=== PATIENT | female | born 1950 | race Two or more races ===

== ENCOUNTER 2019-05-08 08:00 | Observation (INO) | payer OTHER ==
[2019-05-07 15:06] VITALS: BMI 39.0
[~2019-05-08] VITALS: Ht 162.6 cm; Wt 102.5 kg
[2019-05-08] VITALS (26 sets, daily range): BP systolic 123–187; BP diastolic 62–97; PULSE 72–111; RESP 10–24; Ht 162.6 cm; Wt 102.5 kg
[~2019-05-08 08:00] MED LIST: CEFAZOLIN 2 GM/50 ML (PMX) 50 ML IVPB ONE; PHENYLephrine (100 MCG/ML) 10ML SYG ONE
[2019-05-08] MEDS ORDERED: ASPI-817 ORAL (08:42)
[2019-05-08] MEDS ORDERED: LOSA50TA14 ORAL (08:42)
[2019-05-08] MEDS ORDERED: LACTATED RINGER'S 1,000 ML IV SCH (09:00)
[2019-05-08] MEDS ORDERED: ONDANSETRON 4 MG INJ ONE ×2 (09:47→11:48)
--- NOTE | 2019-05-08 10:44 | PREAC ---
Date/Time of Note Date/Time of Note DATE: 05/08/19 TIME: 10:43 Anesthesia Eval and Record Evaluation Time Pre-Procedure Interview DATE: 05/08/19 TIME: 10:43 Age 69 Sex female NPO: 8 hrs Preoperative diagnosis breast cancer Planned procedure right radical mastectomy Past Medical History Past Medical History: Includes Cardio: HTN, Dyslipidemia GI: Obesity Surgery & Anesthesia Issues No known issue Meds Anticoagulation: No Beta Otilia within 24 hr: No Reason Beta Otilia not given: Pt. not on B-Otilia Reported Medications Losartan Potassium* (Losartan Potassium*) 50 Mg Tablet, 1 TAB ORAL DAILY 05/08/19 Aspirin* (Aspirin* EC) 81 Mg Tablet.dr, 1 TAB ORAL DAILY 05/08/19 Current Medications Lactated Ringer's 1,000 ml @ 20 mls/hr Q24H IV ; Start 05/08/19 at 09:00 Meds reviewed: Yes Allergies Coded Allergies: No Known Allergy (Unverified , 05/07/19) Allergies Reviewed: Yes Labs/Studies Labs Reviewed: Reviewed by anesthesiologist test: N/A Pre-procedure Exam Last vitals Vital Signs Date Temp Pulse Resp B/P (MAP) Pulse Ox O2 O2 Flow FiO2 Time Delivery Rate 05/08/19 98.4 92 16 181/86 95 09:28 (117) Airway: Adequate mouth opening, Adequate thyromental dist Mallampati: Mallampati III Teeth: Normal Lung: Normal Heart: Normal ASA Physical Status ASA physical status: 3 Emergency: None Pre-operative Attestations Prior to commencing anesthesia and surgery, the patient was re-evaluated, there was verification of: *The patient's identity *The results of appropriate recent lab work and preoperative vital signs *The above evaluation not changing prior to induction *Anesthetic plan, risk benefits, alternative and complications discussed with patient/family; questions answered; patient/family understands, accepts and wi shes to proceed. MANPREET TAN DO May 08, 2019 10:44
[2019-05-08] MEDS ORDERED: PROPOFOL 20 ML ONE (11:21)
[2019-05-08] MEDS ORDERED: ETOMIDATE 20 MG INJ ONE (11:21)
[2019-05-08] MEDS ORDERED: LIDOCAINE 1% (MDV) 20 ML INJ ONE (11:21)
[2019-05-08] MEDS ORDERED: MIDAZOLAM 1 MG/ML 2 ML INJ ONE (11:24)
--- NOTE | 2019-05-08 11:27 | HPN ---
Date/Time of Note Date/Time of Note DATE: 05/08/19 TIME: 11:27 Interval H&P Admission Note Pt. seen H&P reviewed: No system changes ARIA JERRY MD May 08, 2019 11:27
[2019-05-08] MEDS ORDERED: CEFAZOLIN 1 GM INJ ONE (11:48)
--- NOTE | 2019-05-08 13:50 | OPR ---
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 Postoperative Diagnosis: Same Operation/Procedure Performed: 1. Right simple mastectomy Surgeon: Aria Jerry MD Oil Expert: Sarai Noel NP Anesthesia Type: general Estimated Blood Loss: Less than 20 ml's Transfusion: None Specimen: 1. Right breast with suture short superior long lateral Grafts/Implants: none Tubes/Drains: 1. Lateral 19 [place] Homero right breast Complications: None Pt Condition Post Procedure: Stable Disposition: PACU Indications: Patient was diagnosed on radiographic and eventual biopsy to have DCIS x2 locations in the right breast. We had long discussion with family for breast conservation therapy which includes lumpectomy and radiation versus mastectomy. We also had discussion about reconstruction through plastic surgeon. Patient has opted for mastectomy without reconstruction. Risks include but are not limited to bleeding, infection, abscess, seroma, leak, damage to surrounding tissues, chronic pain, need for re-operations or further surgeries, [place], stroke, PE, DVT, pneumonia, organ failures, or even . There is also risk of recurrence or metastasis. Patient and family fully understands like to proceed with surgery. Procedure Description: Patient was brought and placed supine on the operating table. SCDs were placed. Preoperative antibiotics administered. After induction of anesthesia she was prepped and draped usual sterile fashion and timeout was performed. Elliptical incision was made around the nipple and the incision was extended sharply into the subcutaneous tissue. Tissue planes were created in all 4 quadrants. Superiorly to the clavicle medially to the sternum inferior to the inferior mammary fold and laterally to the lateral edge of the pectus and using electrocautery the breast tissue was excised off of the skin making sure not to injure the skin. At this point the breast tissue was excised with electrocautery off of the pectus all the way to the axillary tail. The axillary tail was excised using electrocautery and the breast tissue was marked with kristen dalton lateral and sent to pathology for permanent section. Right chest wound was irrigated with warm water to clear suctioning fluid. Complete hemostasis was obtained. 19 [place] drain was placed through the right axilla draining the chest. Then sutured to the skin using 3-0 nylon. The skin was closed with 2-0 Vicryl 2 in running fashion in the dermis followed by 4-0 Monocryl 2 subcuticularly. Mastisol and Steri-Strips were applied. Fluff and bra were applied. Patient was extubated and transferred to recovery room in stable condition and all counts were correct at the end of the operation 2. ARIA JERRY MD May 08, 2019 13:50
[2019-05-08] MEDS ORDERED: LABETALOL HCL 20MG INJ ONE (13:51)
--- NOTE | 2019-05-08 13:55 | PAC ---
Date/Time of Note Date/Time of Note DATE: 05/08/19 TIME: 13:54 Post-Anesthesia Notes Post-Anesthesia Note Last documented vital signs Vital Signs Date Temp Pulse Resp B/P (MAP) Pulse Ox O2 O2 Flow FiO2 Time Delivery Rate 05/08/19 98 85 16 170/62 100 1354 Activity: WNL Respiratory function: WNL Cardiovascular function: WNL Mental status: Baseline Pain reasonably controlled: Yes Hydration appropriate: Yes Nausea/Vomiting absent: Yes MANPREET TAN DO May 08, 2019 13:55
[2019-05-08] MEDS ORDERED: LABETALOL HCL 20MG INJ IV PRN (14:00)
[2019-05-08] MEDS ORDERED: OXYCODONE/ACETAMINOPHEN (5/325) TAB PO PRN ×2 (14:00)
[2019-05-08] MEDS ORDERED: IBUPROFEN 600 MG TAB PO PRN (14:00)
[2019-05-08] MEDS ORDERED: morphine 2 MG INJ IV PRN (14:00)
[2019-05-08] MEDS ORDERED: ONDANSETRON 4 MG INJ IV PRN ×2 (14:00→21:01)
[2019-05-08] MEDS ORDERED: ACETAMINOPHEN 325 MG TAB PO PRN (14:00)
[2019-05-08] MEDS ORDERED: HYDROmorphONE 1 MG/5 ML IV SYRINGE IV PRN ×3 (14:00)
[2019-05-08] MEDS: SOD CHLORIDE 0.9% 1,000 ML IV SCH (15:56)
[2019-05-08] MEDS: HYDROCODONE/APAP (5/325) TAB PO PRN (16:06)
[2019-05-09] MEDS: HYDROCODONE/APAP (5/325) TAB PO PRN ×3 (00:01→17:25)
[2019-05-09] MEDS: SOD CHLORIDE 0.9% 1,000 ML IV SCH (04:24)
[2019-05-09 07:32] VITALS: BP 160/73; PULSE 78; RESP 18
[2019-05-09] MEDS ORDERED: LOSARTAN 50 MG TAB PO SCH (09:00)
--- NOTE | 2019-05-09 13:44 | PN ---
Date/Time of Note Date/Time of Note DATE: 05/09/19 TIME: 13:43 Assessment/Plan VTE Prophylaxis Risk score (from Nsg)>0 risk: 3 SCD applied (from Nsg): Yes Pharmacological prophylaxis: LMWH Lines/Catheters IV Catheter Type (from Nrsg): Peripheral IV Urinary Cath still in place: No Assessment/Plan Assessment/Plan POD #1 mastectomy ok d/c home home heatlh Result Diagram: 05/09/19 0436 05/09/19 0436 Results 24hrs Laboratory Tests Test 05/09/19 04:36 05/09/19 07:18 White Blood Count 7.8 Red Blood Count 4.10 L Hemoglobin 11.4 L Hematocrit 35.3 L Mean Corpuscular Volume 86.1 Mean Corpuscular Hemoglobin 27.8 L Mean Corpuscular Hemoglobin Concent 32.3 Red Cell Distribution Width 14.3 Platelet Count 185 Mean Platelet Volume 10.9 H Immature Granulocytes % 0.300 Neutrophils % 61.5 Lymphocytes % 25.1 Monocytes % 12.0 H Eosinophils % 0.3 Basophils % 0.8 Nucleated Red Blood Cells % 0.0 Immature Granulocytes # 0.020 Neutrophils # 4.8 Lymphocytes # 2.0 Monocytes # 0.9 Eosinophils # 0.0 Basophils # 0.1 Nucleated Red Blood Cells # 0.0 Sodium Level 142 Potassium Level 3.7 Chloride Level 110 Carbon Dioxide Level 28 Anion Gap 4 L Blood Urea Nitrogen 12 Creatinine 0.67 Est Glomerular Filtrat Rate mL/min > 60 Glucose Level 96 Calcium Level 8.2 L Phosphorus Level 3.8 Magnesium Level 2.0 Total Bilirubin 0.7 Direct Bilirubin 0.00 Indirect Bilirubin 0.7 Aspartate Amino Transf (AST/SGOT) 46 Alanine Aminotransferase (ALT/SGPT) 27 Alkaline Phosphatase 58 Total Protein 6.1 Albumin 3.2 L Globulin 2.90 Albumin/Globulin Ratio 1.10 Lab Scanned Report REFERENCE LAB Subjective 24 Hr Interval Summary Free Text/Dictation no complaints, tolerating po, ambulating to toilet Exam/Review of Systems Exam Vitals Vital Signs Date Temp Pulse Resp B/P (MAP) Pulse Ox O2 O2 Flow FiO2 Time Delivery Rate 05/09/19 97.9 78 18 160/73 98 Room Air 07:32 (102) Intake and Output 05/08/19 05/08/19 05/09/19 1515:00 23:00 07:00 IntakeIntake Total 1000 ml 315 ml 200 ml OutputOutput Total 35 ml 510 ml 680 ml BalanceBalance 965 ml -195 ml -480 ml Exam nad, soft nt, ctab, rrr Results Results 24hrs Laboratory Tests Test 05/09/19 04:36 05/09/19 07:18 White Blood Count 7.8 Red Blood Count 4.10 L Hemoglobin 11.4 L Hematocrit 35.3 L Mean Corpuscular Volume 86.1 Mean Corpuscular Hemoglobin 27.8 L Mean Corpuscular Hemoglobin Concent 32.3 Red Cell Distribution Width 14.3 Platelet Count 185 Mean Platelet Volume 10.9 H Immature Granulocytes % 0.300 Neutrophils % 61.5 Lymphocytes % 25.1 Monocytes % 12.0 H Eosinophils % 0.3 Basophils % 0.8 Nucleated Red Blood Cells % 0.0 Immature Granulocytes # 0.020 Neutrophils # 4.8 Lymphocytes # 2.0 Monocytes # 0.9 Eosinophils # 0.0 Basophils # 0.1 Nucleated Red Blood Cells # 0.0 Sodium Level 142 Potassium Level 3.7 Chloride Level 110 Carbon Dioxide Level 28 Anion Gap 4 L Blood Urea Nitrogen 12 Creatinine 0.67 Est Glomerular Filtrat Rate mL/min > 60 Glucose Level 96 Calcium Level 8.2 L Phosphorus Level 3.8 Magnesium Level 2.0 Total Bilirubin 0.7 Direct Bilirubin 0.00 Indirect Bilirubin 0.7 Aspartate Amino Transf (AST/SGOT) 46 Alanine Aminotransferase (ALT/SGPT) 27 Alkaline Phosphatase 58 Total Protein 6.1 Albumin 3.2 L Globulin 2.90 Albumin/Globulin Ratio 1.10 Lab Scanned Report REFERENCE LAB Medications Medication Current Medications Morphine Sulfate (morphine) 2 mg Q4H PRN IV beakthrough pain; Start 05/08/19 at 14:00 Acetaminophen/ Hydrocodone Bitart ([place] (5/325)) 1 tab Q6H PRN PO PAIN LEVEL 6-10 Last administered on 05/09/19at 10:28; Admin Dose 1 TAB; Start 05/08/19 at 14:00 Acetaminophen (Tylenol Tab) 650 mg Q6H PRN PO MILD PAIN(1-3)OR ELEVATED TEMP; Start 05/08/19 at 14:00 Ibuprofen (Motrin) 600 mg Q6H PRN PO PAIN LEVEL 1-5; Start 05/08/19 at 14:00 Ondansetron HCl (Zofran Inj) 4 mg Q6H PRN IV NAUSEA AND/OR VOMITING; Start 05/08/19 at 21:01 Sodium Chloride 1,000 ml @ 75 mls/hr [id number] IV Last administered on 05/09/19at 04:24; Admin Dose 75 MLS/HR; Start 05/08/19 at 16:00 Losartan Potassium (Cozaar) 50 mg DAILY PO Last administered on 05/09/19at 08:41 ; Admin Dose 50 MG; Start 05/09/19 at 09:00 PHUC DALY MD May 09, 2019 13:44
--- NOTE | 2019-05-09 13:48 | PDOCDIS ---
Discharge Instructions DIAGNOSIS Discharge Diagnosis breast cancer status post mastectomy CONDITION [id number] Patient Condition: [id number] Good HOME CARE INSTRUCTIONS: [id number] Diet Instructions: [id number] Regular ACTIVITY: [id number] Activity Restrictions: [id number] Slowly Increase Activity FOLLOW UP/APPOINTMENTS Follow-up Plan 1. dr mitchell 1 week 2. pcp 1 week 3. home health nurse PHUC DALY MD May 09, 2019 13:48
--- NOTE | 2019-05-09 13:49 | DS ---
Date/Time of Note Date/Time of Note DATE: 05/09/19 TIME: 13:49 Discharge Summary Admission/Discharge Info Admit Date/Time May 08, 2019 at 13:47 Discharge Date/Time Discharge Diagnosis breast cancer status post mastectomy Patient Condition: Good Hospital Course patient had elective mastectomy for breast cancer, tolerated well Rx percocet 5/325 i-ii po q4h prn pain Home Meds Reported Medications Losartan Potassium* (Losartan Potassium*) 50 Mg Tablet, 1 TAB ORAL DAILY 05/08/19 Aspirin* (Aspirin* EC) 81 Mg Tablet., 1 TAB ORAL DAILY 05/08/19 Follow-up Plan 1. dr mitchell 1 week 2. pcp 1 week 3. home health nurse Primary Care Provider Not On Staff Doctor Pending Labs Laboratory Tests Test 05/09/19 04:36 05/09/19 07:18 White Blood Count 7.8 10^3/ul (4.8-10.8) Red Blood Count 4.10 10^6/ul (4.20-5.40) Hemoglobin 11.4 g/dl (12.0-16.0) Hematocrit 35.3 % (37.0-47.0) Mean Corpuscular Volume 86.1 fl (82.0-101.0) Mean Corpuscular Hemoglobin 27.8 pg (29.0-33.0) Mean Corpuscular 32.3 g/dl (32.0-37.0) Hemoglobin Concent Red Cell Distribution Width 14.3 % (11.5-14.5) Platelet Count 185 10^3/UL (140-415) Mean Platelet Volume 10.9 fl (7.4-10.4) Immature Granulocytes % 0.300 % (0.001-0.429) Neutrophils % 61.5 % (39.0-77.0) Lymphocytes % 25.1 % (15.0-51.0) Monocytes % 12.0 % (0.0-11.0) Eosinophils % 0.3 % (0.0-7.0) Basophils % 0.8 % (0.0-2.0) Nucleated Red Blood Cells % 0.0 /100WBC (0.0-0.0) Immature Granulocytes # 0.020 10^3/ul (0.0-0.031) Neutrophils # 4.8 10^3/ul (1.6-7.5) Lymphocytes # 2.0 10^3/ul (0.8-2.9) Monocytes # 0.9 10^3/ul (0.3-0.9) Eosinophils # 0.0 10^3/ul (0.0-0.5) Basophils # 0.1 10^3/ul (0.0-0.1) Nucleated Red Blood Cells # 0.0 10^3/ul (0.0-0.0) Sodium Level 142 mmol/L (135-144) Potassium Level 3.7 mmol/L (3.5-5.1) Chloride Level 110 mmol/L (97-110) Carbon Dioxide Level 28 mmol/L (21-31) Anion Gap 4 (5-13) Blood Urea Nitrogen 12 mg/dl (7-20) Creatinine 0.67 mg/dl (0.44-1.00) Est Glomerular Filtrat > 60 mL/min (>60) Rate mL/min Glucose Level 96 mg/dl (70-220) Calcium Level 8.2 mg/dl (8.4-10.2) Phosphorus Level 3.8 mg/dl (2.5-4.9) Magnesium Level 2.0 mg/dl (1.7-2.5) Total Bilirubin 0.7 mg/dl (0.2-1.3) Direct Bilirubin 0.00 mg/dl (0.00-0.20) Indirect Bilirubin 0.7 mg/dl (0-1.1) Aspartate Amino 46 IU/L (15-46) Transf (AST/SGOT) Alanine 27 IU/L (13-69) Aminotransferase (ALT/SGPT) Alkaline Phosphatase 58 IU/L (42-121) Total Protein 6.1 g/dl (6.1-8.1) Albumin 3.2 g/dl (3.3-4.9) Globulin 2.90 g/dl (1.3-3.2) Albumin/Globulin Ratio 1.10 Lab Scanned Report REFERENCE LAB [id number] PHUC DALY MD May 09, 2019 13:49
[2019-05-09 15:29] VITALS: BP 158/72; PULSE 70; RESP 18
[2019-05-09 15:34] VITALS: BP 89/54; PULSE 86; RESP 15
== END 2019-05-09 17:49 | disposition home health service (06) ==
LOC: SDS 08:00 → REC 13:47 → MS1 15:18
PROVIDERS: ADMIT Internal Medicine; ATTEND Internal Medicine
DX: D05.11 Intraductal carcinoma in situ of right breast (principal); I10 Essential (primary) hypertension; E78.5 Hyperlipidemia, unspecified; M19.90 Unspecified osteoarthritis, unspecified site
CPT/HCPCS: 19303; 80053; 83735; 84100; 85025; 88307; J0690; J2250; J2370; J2405; J3010; J7030; Z7500; Z7512; Z7610; 88342; G0378